=== PATIENT | male | born 1960 | race Caucasian/White ===

== ENCOUNTER 2018-01-15 06:13 | Outpatient (CLI) | payer MEDICARE ==
[~2018-01-15] VITALS: Ht 185.4 cm; Wt 116.4 kg
--- NOTE | ~2018-01-15 | HEMODYNAMI ---
PATIENT:ISABELLE TSE MEDICAL RECORD: [id number] : 60 LOCATION:[facility] ADMISSION DATE: 01/15/18 Generatedon:01/15/20189:17 Patient name: ISABELLE TSE Patient #: [id number] SSN: : 1960 Date of study: 01/15/2018 Page: Of Hemodynamic Procedure Report Patient Data Patient Demographics Procedure consent was obtained First Name: ISABELLE Gender: Male Last Name: CARMENCITA : 1960 [facility] Initial: C Age: 57 year(s) Patient #: [id number] Race: Unknown Additional ID: [id number] Contact details Address: [address] [place] [address] State: [place]: [facility] [place] code: [address] Admission Admission Data Admission Date: 01/15/2018 Admission Time: 6:13 Lab Results Lab Result Date: 01/15/2018 Lab Result Time: 0:00 Biochemistry Name Units Result Min Max BUN mg/dl 28 --(----)-* 7 18 Creatinine mg/dl 1.2 --(---*)-- 0.6 1.3 CBC Name Units Result Min Max Hemoglobin g/dl 17.3 --(---*)-- 13.5 17.5 Procedure Procedure Types Cath Procedure Diagnostic Procedure [facility] w/Coronaries Sedation Charges Moderate Sedation up to 15 minutes Procedure Description Procedure Date Procedure Date: 01/15/2018 Procedure Start Time: 8:48 Procedure End Time: 9:10 Procedure Staff Name Function Nathan Michelle MD Performing Physician Diann Nguyen RT Monitor Giovana Rodas RT Scrub Richar Jennings RN Nurse Procedure Data Cath Procedure Fluoroscopy Diagnostic fluoroscopy Total fluoroscopy Time: 5.7 time: 5.7 min min Diagnostic fluoroscopy Total fluoroscopy dose: dose: 1153 mGy 1153 mGy Contrast Material Contrast Material Type Amount (ml) Isovue 300 67 Entry Location Entry Primary Successful Side Size Upsize Upsize Entry Closure Quintero ccessful Closure Location (Fr) 1 (Fr) 2 (Fr) Remarks Device Remarks Radial Right 6 Fr Mechanical artery Short Compression Femoral Right 5 Fr Exoseal artery Estimated blood loss: 5 ml Diagnostic catheters Device Type Used For End Catheter Placement DIAGNOSTIC [place] 110cm Multi-vessel 5Fr catheter (389226) Angiography DIAGNOSTIC [place] 110cm 5 Multi-vessel Fr catheter (956859) Angiography Procedure Complications No complications Procedure Medications Medication Administration Route Dosage Oxygen etCO2 Nasal cannula 2 l/min Lidocaine 2% added to field 20 Heparin Flush Bag added to field 2 bags (1000units/500ml NS) 0.9% NaCl I.V. 100 ml/hr Zofran I.V. 4 mg Versed I.V. 2 mg Fentanyl I.V. 100 mcg Versed I.V. 2 mg Fentanyl I.V. 100 mcg Radial Cocktail I.A. 1 syringe (Verapomil 2mg/Nitro 400mcg/Heparin 1500units) Versed I.V. 2 mg Fentanyl I.V. 50 mcg Versed I.V. 1 mg Hemodynamics Rest HGB: 17.3 (g/dl) Heart Rate: 70 (bpm) Pressure Samples Time Site Value (mmHg) Purpose Heart Use Rate(bpm) 8:54 LV 208/19,13 Snapshot 79 8:54 AO 89/68(72) Pullback 77 8:54 LV 115/5,19 Pullback 77 Gradients Valve Time Site 1 Site 2 Mean SEP/DFP Peak To Heart Use (mmHg) (sec/min) Peak Rate (mmHg) (bpm) Aortic 8:54 LV AO 11 21 26 77 115/5,19 89/68(72) Calculations Valve P-P Mean Valve Index Valve Source Name Gradient Area Flow (cm2) Aortic 26 11 26 11 Snapshots Pre Cath Intra NCS Post Cath Vital Signs Time Heart Resp SPO2 etCO2 NIBP (mmHg) Rhythm Pain Sedation Rate (ipm) (%) (mmHg) Status Level (bpm) 8:15:56 71 20 97 0 127/79(91) NSR 0 (11) 10(A) , No pain 8:20:04 72 20 98 0 120/77(91) NSR 0 (11) 10(A) , No pain 8:24:09 71 16 94 19.6 111/75(96) NSR 0 (11) 10(A) , No pain 8:28:11 70 17 96 41.6 125/79(99) NSR 0 (11) 10(A) , No pain 8:32:19 67 12 94 37.8 142/83(103) NSR 0 (11) 10(A) , No pain 8:36:33 68 15 95 14.3 126/78(109) NSR 0 (11) 10(A) , No pain 8:40:41 68 14 94 9.8 120/80(105) NSR 0 (11) 10(A) , No pain 8:44:44 67 12 96 31.8 124/83(87) NSR 0 (11) 9(A) , No pain 8:49:39 66 14 92 40.1 124/81(107) NSR 0 (11) 9(A) , No pain 8:53:47 92 13 95 23.4 123/76(102) NSR 0 (11) 9(A) , No pain 8:57:59 67 12 94 34.8 121/64(103) NSR 0 (11) 9(A) , No pain 9:02:09 68 13 94 36.3 114/72(96) NSR 0 (11) 9(A) , No pain 9:06:17 67 13 91 34.1 112/64(96) NSR 0 (11) 9(A) , No pain 9:10:23 69 14 95 34.8 113/72(88) NSR 0 (11) 10(A) , No pain Medications Time Medication Route Dose Verified Delivered Reason Notes Effectiveness by by 8:15:42 Oxygen etCO2 2 l/min Nathan Buffie used for Nasal Miguel Angel Jennings RN procedure cannula 8:15:49 Lidocaine 2% added 20ml Nathan Nathan for local to vial Miguel Angel Michelle MD anesthetic field 8:15:55 Heparin Flush added 2 bags Nathan Nathan used for Bag to Miguel Angel Michelle MD procedure (1000units/500ml field NS) 8:16:04 0.9% NaCl I.V. 100 Nathan Buffie Per ml/hr Miguel Angel Jennings RN physician 8:16:33 Zofran I.V. 4 mg Nathan Buffie for nausea Miguel Angel Jennings RN 8:34:32 Versed I.V. 2 mg Nathan Buffie for sedation Miguel Angel Jennings RN 8:34:38 Fentanyl I.V. 100 mcg Nathan Jeffie for sedation Miguel Angel Jennings RN 8:38:07 Versed I.V. 2 mg Nathan Buffie for sedation Miguel Angel Jennings RN 8:38:10 Fentanyl I.V. 100 mcg Nathan Jeffie for sedation Miguel Angel Jennings RN 8:44:06 Fentanyl I.V. 50 mcg Nathan Nathan for sedation Miguel Angel Michelle MD 8:44:59 Versed I.V. 2 mg Nathan Nathan for sedation Miguel Angel Michelle MD 8:52:03 Radial Cocktail I.A. 1 Nathan Nathan for (Verapomil syringe Miguel Angel Michelle MD vasodilation 2mg/Nitro 400mcg/Heparin 1500units) 9:01:30 Versed I.V. 1 mg Nathan Nathan for sedation Miguel Angel Michelle MD Procedure Log Time Note 7:53:45 Informed consent obtained and on chart 7:54:06 Diagnostic Cath Status : Elective 7:56:27 Richar Jennings RN sent for patient. Start room use. 7:56:28 Time tracking: Regular hours (M-F 7:00 - 5:00) 7:56:34 Plan of Care:Hemodynamics will remain stable., Cardiac rhythm will remain stable., Comfort level will be maintained., Respiratory function will remain adequate., Patient/ family verbilizes understanding of procedure., Procedure tolerated without complication., Recovers from procedure without complications.. 8:09:57 Patient received from Pre/Post Procedure Room to [facility] 2 Alert and oriented. Tansferred to table in Supine position. 8:09:58 Warm blankets applied, and yossi hugger turned on for patient comfort. 8:09:59 Correct patient and procedure confirmed by team. 8:09:59 ECG and BP/O2 sat monitors applied to patient. 8:14:57 Vital chart was started 8:15:42 Oxygen 2 l/min etCO2 Nasal cannula was administered by Richar Jennings RN; used for procedure; 8:15:49 Lidocaine 2% 20ml vial added to field was administered by Nathan Michelle MD; for local anesthetic; 8:15:55 Heparin Flush Bag (1000units/500ml NS) 2 bags added to field was administered by Nathan Michelle MD; used for procedure; 8:16:04 0.9% NaCl 100 ml/hr I.V. was administered by Richar Jennings RN; Per physician; 8:16:33 Zofran 4 mg I.V. was administered by Richar Jennings RN; for nausea; 8:27:38 Baseline sample Acquired. 8:27:43 Rhythm: sinus rhythm 8:27:44 Full Disclosure recording started 8:27:48 H&P Date Dictated: 01/15/2018 Within 30 days and on chart., H&P Addendum completed by physician on day of procedure. (MUST COMPLETE FOR ALL OUTPATIENTS). 8:27:49 Pre-procedure instructions explained to patient. 8:27:49 Pre-op teaching completed and patient verbalized understanding. 8:27:50 Family in waiting room. 8:27:52 Patient NPO since Midnight. 8:27:54 Is the patient allergic to Iodine/contrast media? No. 8:27:55 Was the patient premedicated? No 8:27:56 Is patient on blood thinner?No 8:27:57 Patient diabetic? No. 8:28:00 Previous problem with sedation/anesthesia? No ? 8:28:01 Snore? Yes 8:28:03 Sleep apnea? No 8:28:04 Deviated septum? No 8:28:04 Opens mouth fully? Yes 8:28:05 Sticks out tongue? Yes 8:28:07 Airway obstruction? No ? 8:28:09 Dentures? No ? 8:28:15 Pre procedure: right dorsailis pedis pulse 2+ Normal; easily identifiable; not easily obliterated 8:28:24 Patient pain scale 0/10 ?. 8:28:30 IV patent on arrival in left forearm with 0.9% NaCl at [facility]. 8:28:33 Lab results completed and on chart. 8:28:38 Right Radial & Right Groin area was prepped with chlora-prep and draped in sterile fashion 8:28:39 Alarms reviewed by R. N. 8:28:39 Sharps counted by scrub and verified by R.N. 8:33:58 Physician arrived 8:33:58 --------ALL STOP TIME OUT------ 8:33:59 Final Timeout: patient, procedure, and site verified with staff and physician. All members of the team are in agreement. 8:34:01 Right Radial & Right Groin site verified by team. 8:34:05 Physical assessment completed. ASA score P 2 - A patient with mild systemic disease as per Nathan Michelle MD. 8:34:08 Sedation plan: IV Moderate Sedation Medication:Versed, Fentanyl 8:34:16 Use device set Radial Dx or PCI 8:34:17 ACIST Syringe (41178) opened to sterile field. 8:34:18 Medline Cath Pack ([id number]) opened to sterile field. 8:34:18 Bag Decanter (2002S) opened to sterile field. 8:34:18 DIAGNOSTIC WIRE .035 260cm J wire (203649) opened to sterile field. 8:34:19 ACIST Hand Control (68981) opened to sterile field. 8:34:19 ACIST Manifold (65058) opened to sterile field. 8:34:20 Tegaderm 4 x 4 (1626W) opened to sterile field. 8:34:20 MBrace Wrist Support ([id number]) opened to sterile field. 8:34:22 SHEATH 6FR Slender (56-0575) opened to sterile field. 8:34:32 Versed 2 mg I.V. was administered by Richar Jennings RN; for sedation; 8:34:38 Fentanyl 100 mcg I.V. was administered by Richar Jennings RN; for sedation; 8:36:30 Lab Result : BUN 28 mg/dl 8:36:30 Lab Result : Hemoglobin 17.3 g/dl 8:36:30 Lab Result : Creatinine 1.2 mg/dl 8:38:07 Versed 2 mg I.V. was administered by Richar Jennings RN; for sedation; 8:38:10 Fentanyl 100 mcg I.V. was administered by Richar Jennings RN; for sedation; 8:41:00 Zero performed for pressure channel P1 8:44:06 Fentanyl 50 mcg I.V. was administered by Nathan Michelle MD; for sedation; 8:44:59 Versed 2 mg I.V. was administered by Nathan Michelle MD; for sedation; 8:47:48 Procedure started. 8:48:18 Local anesthetic to right radial artery with Lidocaine 2% by Nathan Michelle MD.INITIAL ACCESS ONLY 8:48:39 A 6 Fr Short sheath was inserted into the Right Radial artery 8:51:54 A DIAGNOSTIC [place] 110cm 5Fr catheter (737010) was advanced over the wire and used for Multi-vessel Angiography. 8:52:03 Radial Cocktail (Verapomil 2mg/Nitro 400mcg/Heparin 1500units) 1 syringe I.A. was administered by Nathan Michelle MD; for vasodilation; 8:54:34 LV hemodynamics recorded. 8:54:35 LV gram done using [place] 8:54:38 Injector settings: Ml/sec: 5, Volume: 15, 8:54:44 EF : 60 % 8:56:09 Catheter removed. 8:56:24 A DIAGNOSTIC [place] 110cm 5 Fr catheter (751501) was advanced over the wire and used for Multi-vessel Angiography. 8:58:45 Catheter removed. 8:59:01 SHEATH 5FR [place] (VND380) opened to sterile field. 8:59:02 DIAGNOSTIC Multipack 5Fr catheter set (IN6248) opened to sterile field. 8:59:41 Local anesthetic to right femoral artery with Lidocaine 2% by Nathan Michelle MD.ADDITIONAL ACCESS 8:59:49 A 5 Fr sheath was inserted into the Right Femoral artery 9:01:30 Versed 1 mg I.V. was administered by Nathan Michelle MD; for sedation; 9:02:57 5 Fr jl 4 guide catheter was inserted over the wire 9:03:05 LCA angiography performed. 9:03:08 Injector settings: Ml/sec: 3, Volume: 6, 9:04:37 Catheter removed. 9:04:49 5 Fr 3drc guide catheter was inserted over the wire 9:06:27 RCA angiography performed. 9:06:30 Injector settings: Ml/sec: 3, Volume: 6, 9:07:01 Catheter removed. 9:07:11 EXOSEAL 5Fr (EX500) opened to sterile field. 9:07:39 TR BAND Large ([id number]) opened to sterile field. 9:07:52 Sheath removed intact; hemostasis achieved with Exoseal to the Right Femoral artery. 9:08:08 Sheath removed intact; hemostasis achieved with Mechanical Compression to the Right Radial artery. 9:08:10 Procedure ended.(Physican Out) 9:08:22 Fluoroscopy time 05.70 minutes. 9:08:26 Fluoroscopy dose: 1153 mGy 9:08:26 Flurop Dose total: 1153 9:08:38 Contrast amount:Isovue 300 67ml. 9:08:40 Sharps counted by scrub and verified by R.N. 9:08:44 TR band inflated with 10cc of air. 9:08:45 Insertion/operative site no bleeding no hematoma. 9:08:51 Post-op/insertion site Right Femoral artery dressed using a 4 x 4 and Tegaderm. 9:08:54 Post right femoral artery:stable 9:08:55 Post Procedure Pulses reassessed and unchanged 9:08:57 Post procedure rhythm: unchanged. 9:09:00 Estimated blood loss: 5 ml 9:09:02 Post procedure instruction explained to patient.Patient verbalizes understanding. 9:09:02 Patient needs reinforcement of post procedure teaching. 9:09:43 Procedure type changed to Cath procedure, Diagnostic procedure, LHC, LHC w/Coronaries, Sedation Charges, Moderate Sedation up to 15 minutes 9:10:25 Procedure and supply charges have been captured, reviewed, submitted and are correct. 9:10:31 Procedure Complication : No complications 9:10:33 Vital chart was stopped 9:10:33 See physician's report for complete and final results. 9:10:53 Report given to Pre/Post Procedure Room. 9:10:56 Patient transfered to Pre/Post Procedure Room with Stretcher. 9:10:58 Procedure ended. 9:10:58 Full Disclosure recording stopped 9:11:02 End room use (Document Last) Device Usage Item Name Manufacture Quantity Catalog Hospital Part Current Minimal Lot# / Number Charge Number Stock Stock Serial# Code ACIST Acist 1 40647 366661 954978 581553 20 Syringe Medical (45401) Systems Inc Medline Medline 1 [id number] 935057 39078 127984 5 Cath Pack ([id number]) Bag Microtek 1 2001S 608579 67385 392621 5 Decanter Medical Inc. () DIAGNOSTIC St Phil 1 172108 741489 178290 821766 30 WIRE .035 260cm J wire (888358) ACIST Hand Acist 1 50556 627925 571415 822567 5 Control Medical (83121) Systems Inc ACIST Acist 1 14259 811769 735485 465125 5 Manifold Medical (88118) Systems Inc Tegaderm 4 3M 1 1626W 702430 701496 991713 5 x 4 (1626W) MBrace Advanced 1 140-0250-00 785742 64486 952666 5 Wrist Vascular Support Dynamics ([id number]) SHEATH 6FR Terumo 1 [id number] 297955 141069 157017 40 Slender (80-1060) DIAGNOSTIC Terumo 1 40-5023 707236 194320 981926 5 [place] 110cm 5Fr catheter (550576) DIAGNOSTIC Terumo 1 40-5013 057637 320391 605524 5 [place] 110cm 5 Fr catheter (877730) SHEATH 5FR Terumo 1 [id number] 792062 698349 992502 40 [place] (GFY190) DIAGNOSTIC Cardinal 1 OX3418 392961 69538 072901 30 [facility] REach 5Fr catheter set (OM1190) EXOSEAL 5Fr Cardinal 1 EX500 120360 661706 829330 10 (EX500) Health TR BAND Terumo 1 [id number] 668134 103222 910920 40 Large ([id number]) Signature Audit Melber Stage Time Signature Unsigned Intra-Procedure 01/15/2018 Giovana Rodas 9:17:29 AM RT(R) Signatures Monitor : Diann Nguyen Signature : RT Date : Time : [facility] [address] [facility] [place] [address]
[2018-01-15 06:50] VITALS: BP 121/77; Ht 185.4 cm; Wt 116.4 kg
[2018-01-15] MEDS ORDERED: PRAVACHOL40 MG PO (06:55)
[2018-01-15] MEDS ORDERED: HCTZ25 MG PO (06:55)
[2018-01-15] MEDS ORDERED: AMITRIPTYLINE150 MG PO (06:56)
[2018-01-15] MEDS ORDERED: GEMFIBROZIL600 MG PO (06:57)
[2018-01-15] MEDS ORDERED: TENORMIN50 MG PO (06:57)
[2018-01-15] MEDS ORDERED: MOBIC7.5 MG PO (06:58)
[2018-01-15] MEDS ORDERED: NEURONTIN600 MG PO (06:59)
[2018-01-15] MEDS ORDERED: ZANAFLEX4 MG PO (06:59)
[2018-01-15 07:05] LABS: BASOPHILS 0.5 % (0-2); HEMATOCRIT 48.8 % (42.0-54.0); HEMOGLOBIN 17.3 g/dL (13.5-17.5); IMMATURE GRANULOCYTES 0.2 % (0-5); LYMPHOCYTES 19.8 % (15-50); MCHC 35.5 g/dL (31.0-37.0); MCV 84.6 fL (80.0-100.0); MEAN PLATELET VOLUME 9.1 fL (7.4-10.4); MONOCYTES 13.9 % (2-11); NEUTROPHILS 60.6 % (40-80); PLATELET COUNT 241 10x3/uL (130-400); RBC 5.77 10x6/uL (4.20-6.10); RDW 13.9 % (11.5-14.5); WBC 6.4 10x3/uL (4.8-10.8)
[2018-01-15 07:12] LABS: ANION GAP 10.3 mmol/L (8-16); CARBON DIOXIDE 30.3 mmol/L (21.0-32.0); CREATININE - SERUM 1.2 mg/dL (0.6-1.3); POTASSIUM - SERUM 3.6 mmol/L (3.5-5.1)
== END 2018-01-15 12:10 | disposition home or self-care (01) ==
LOC: D.CATH 06:13
PROVIDERS: Internal Medicine Cardiovascular Disease
DX: R07.9 Chest pain, unspecified (principal); Z01.812 Encounter for preprocedural laboratory examination

== ENCOUNTER → 2018-06-03 08:58 | Outpatient (CLI) | payer MEDICARE ==
[2018-01-15 06:50] VITALS: BMI 33.8
[~2018-06-03 08:58] MED LIST: AMITRIPTYLINE150 MG PO; GEMFIBROZIL600 MG PO; HCTZ25 MG PO; MOBIC7.5 MG PO; NEURONTIN600 MG PO; PRAVACHOL40 MG PO; TENORMIN50 MG PO; ZANAFLEX4 MG PO
== END | disposition home or self-care (01) ==
LOC: D.CT 08:58
PROVIDERS: ATTEND Internal Medicine Gastroenterology
DX: K63.89 Other specified diseases of intestine (principal)

== ENCOUNTER → 2018-06-08 09:56 | Outpatient (CLI) | payer MEDICARE ==
[2018-01-15 06:50] VITALS: BMI 33.8
== END | disposition home or self-care (01) ==
LOC: D.NM 09:56
PROVIDERS: ATTEND Internal Medicine Gastroenterology
DX: C7A.098 Malignant carcinoid tumors of other sites (principal)

== ENCOUNTER → 2018-11-30 08:39 | Outpatient (CLI) | payer MEDICARE ==
[2018-01-15 06:50] VITALS: BMI 33.8
[2018-11-30 10:42] LABS: ALBUMIN 4.2 g/dL (3.4-5.0); BILIRUBIN - DIRECT 0.14 mg/dL (0.00-0.30); BILIRUBIN - INDIRECT 0.41 mg/dL (0.00-1.00); BILIRUBIN - TOTAL 0.55 mg/dL (0.2-1.3); PROTEIN - SERUM 7.9 g/dL (6.4-8.2)
== END | disposition home or self-care (01) ==
LOC: D.US 08:39
PROVIDERS: ATTEND Internal Medicine Gastroenterology
DX: K76.0 Fatty (change of) liver, not elsewhere classified (principal)

== ENCOUNTER → 2019-02-15 09:35 | Outpatient (CLI) | payer MEDICARE ==
[2018-01-15 06:50] VITALS: BMI 33.8
== END | disposition home or self-care (01) ==
LOC: D.NM 01-25 10:00
PROVIDERS: ATTEND Internal Medicine Medical Oncology
DX: C7A.012 Malignant carcinoid tumor of the ileum (principal); C17.2 Malignant neoplasm of ileum

== ENCOUNTER → 2019-06-30 09:58 | Outpatient (CLI) | payer MEDICARE ==
[2018-01-15 06:50] VITALS: BMI 33.8
[2019-06-30 10:59] LABS: BASOPHILS 0.2 % (0-2); EOSINOPHILS 4.4 % (0-7); HEMATOCRIT 48.2 % (42.0-54.0); IMMATURE GRANULOCYTES 0.2 % (0-5); LYMPHOCYTES 18.9 % (15-50); MCH 28.6 pg (26.0-34.0); MCHC 33.2 g/dL (31.0-37.0); MCV 86.1 fL (80.0-100.0); MONOCYTES 7.4 % (2-11); NEUTROPHILS 68.9 % (40-80); PLATELET COUNT 220 10x3/uL (130-400); RDW 15.1 % (11.5-14.5); WBC 5.9 10x3/uL (4.8-10.8)
[2019-06-30 11:08] LABS: ALBUMIN 3.9 g/dL (3.4-5.0); ALKALINE PHOSPHATASE 89 U/L (30-120); ALT (SGPT) 28 U/L (10-68); BILIRUBIN - TOTAL 0.62 mg/dL (0.2-1.3); CALC OSMOLALITY 279 mosm/kg (275-300); CALCIUM 9.2 mg/dL (8.5-10.1); CARBON DIOXIDE 25.1 mmol/L (21.0-32.0); CHLORIDE - SERUM 106 mmol/L (98-107); GLUCOSE 95 mg/dL (74-106); POTASSIUM - SERUM 4.6 mmol/L (3.5-5.1); PROTEIN - SERUM 7.6 g/dL (6.4-8.2); SODIUM 139 mmol/L (136-145); UREA NITROGEN 18 mg/dL (7-18); eGFR NON AFRICAN AMERICAN 81 mL/min (90-120)
== END | disposition home or self-care (01) ==
LOC: D.US 06-09 08:00
PROVIDERS: ATTEND Internal Medicine Gastroenterology
DX: K76.0 Fatty (change of) liver, not elsewhere classified (principal); C7A.012 Malignant carcinoid tumor of the ileum; C17.2 Malignant neoplasm of ileum